=== PATIENT | male | born 1980 | race Caucasian/White ===

== ENCOUNTER 2022-04-12 18:08 | Inpatient (IN) | payer OTHER ==
[~2022-04-12] VITALS: Ht 193 cm; Wt 98.4 kg
[2022-04-12 19:07] LABS: BASO # 0.1 10^3/uL (0.0-0.2); BASO % 0.4 % (0.0-1.0); EOS % 0.1 % (0.0-3.0); HEMATOCRIT 42.1 % (42.0-52.0); HEMOGLOBIN 14.4 g/dl (13.5-17.5); LYMPH # 1.4 10^3/uL (1.5-5.0); LYMPH % 10.8 % (24.0-44.0); MEAN CORPUSCULAR HEMOGLOBIN 28.5 pg (27.0-33.0); MEAN CORPUSCULAR HGB CONC 34.2 g/dl (32.0-36.5); MEAN CORPUSCULAR VOLUME 83.4 fl (80.0-96.0); MONO # 1.2 10^3/uL (0.0-0.8); MONO % 9.5 % (2.0-8.0); NEUTROPHILS # 10.3 10^3/uL (1.5-8.5); NEUTROPHILS % 78.8 % (36.0-66.0); PLATELET COUNT, AUTOMATED 204 10^3/uL (150-450); RED BLOOD COUNT 5.05 10^6/uL (4.30-6.10); WHITE BLOOD COUNT 13.1 10^3/uL (4.0-10.0)
[2022-04-12] MEDS ORDERED: MORPHINE 4 MG/ML 1ML VIAL/SYRINGE IV ONE ×2 (19:30→21:15)
[2022-04-12] MEDS ORDERED: ONDANSETRON 4MG 2ML VIAL IV ONE (19:30)
[2022-04-12] MEDS ORDERED: NS 1,000 ML IV ONE (19:30)
[2022-04-12 19:32] LABS: ALBUMIN 4.3 GM/DL (3.2-5.2); ALT/SGPT 18 U/L (12-78); BILIRUBIN,DIRECT 0.3 MG/DL (0.0-0.2); BILIRUBIN,TOTAL 1.2 MG/DL (0.2-1.0); BLOOD UREA NITROGEN 12 MG/DL (7-18); CALCIUM LEVEL 9.2 MG/DL (8.5-10.1); CARBON DIOXIDE LEVEL 25 MEQ/L (21-32); CHLORIDE LEVEL 103 MEQ/L (98-107); CREATININE FOR GFR 1.31 MG/DL (0.70-1.30); GLOMERULAR FILTRATION RATE > 60.0 (>60); GLUCOSE, FASTING 110 MG/DL (70-100); LIPASE 79 U/L (73-393); POTASSIUM SERUM 3.3 MEQ/L (3.5-5.1); SODIUM LEVEL 136 MEQ/L (136-145); TOTAL PROTEIN 7.6 GM/DL (6.4-8.2)
[2022-04-12] MEDS ORDERED: ISOVUE-370 76% 100ML VIAL As Ordered ONE ×2 (19:32→19:54)
[2022-04-12 20:54] LABS: RSV AMPLIFICATION NEGATIVE (NEGATIVE)
[2022-04-12] MEDS ORDERED: PIPERACILLIN/TAZOBACTAM SOD 4.5 GM in D5W MINI-BAG PLUS 50 ML IV ONE (21:05)
[2022-04-12] MEDS ORDERED: BUPIVACAINE/EPIN 0.25% 30 ML VIAL As Ordered ONE (22:00)
[2022-04-12] MEDS ORDERED: MIDAZOLAM INJ 2MG/2ML VIAL (J2250 PER 1MG) As Ordered ONE (22:12)
[2022-04-12] MEDS ORDERED: LIDOCAINE 2% 100MG/5ML SDV (FOR ANES.) As Ordered ONE (22:12)
[2022-04-12] MEDS ORDERED: propofoL 200 MG/20 ML VIAL As Ordered ONE (22:12)
[2022-04-12] MEDS ORDERED: ROCURONIUM BROMIDE 50 MG/5 ML VIAL As Ordered ONE (22:12)
[2022-04-12] MEDS ORDERED: fentaNYL 250 MCG/5 ML INJECTION As Ordered ONE (22:12)
[2022-04-12] MEDS ORDERED: ONDANSETRON 4MG 2ML VIAL IV PRN ×2 (22:20→23:35)
[2022-04-12] MEDS ORDERED: NORCO, ANEXSIA 5/325MG TABLET (HYDROcodone/ACETAMINOPHEN) PO PRN ×2 (22:20)
[2022-04-12] MEDS ORDERED: ONDANSETRON 4MG 2ML VIAL As Ordered ONE (22:43)
[2022-04-12] MEDS ORDERED: dexameTHASONE 4 MG/ML 1ML VIAL (J1100 PER 1MG) As Ordered ONE (22:43)
[2022-04-12] MEDS ORDERED: ACETAMINOPHEN 1000MG 100ML IV BTL (OFIRMEV) (J0131 PER 10MG) As Ordered ONE (22:43)
[2022-04-12] MEDS ORDERED: KETOROLAC 60MG 2ML VIAL As Ordered ONE (22:43)
[2022-04-12] MEDS ORDERED: SUGAMMADEX SODIUM 500 MG/5 ML VIAL (BRIDION) As Ordered ONE (22:47)
[2022-04-12] MEDS ORDERED: oxyCODONE 5MG TAB PO PRN (23:35)
[2022-04-12] MEDS ORDERED: fentaNYL 100 MCG/2 ML INJECTION IV PRN (23:35)
[2022-04-12] MEDS ORDERED: LR 1,000 ML IV SCH (23:35)
[2022-04-13 00:38] VITALS: BP 102/57
[2022-04-13] MEDS: NS 1,000 ML IV SCH ×2 (01:02→05:55)
[2022-04-13 01:34] VITALS: BP 114/63
[2022-04-13 02:37] VITALS: BP 112/56
[2022-04-13] MEDS: PIPERACILLIN/TAZOBACTAM SOD 3.375 GM in D5W MINI-BAG PLUS 50 ML IV SCH ×2 (03:14→10:07)
[2022-04-13] MEDS ORDERED: HOME MED LIST COMPLETE! XX SCH (03:40)
[2022-04-13 04:54] VITALS: BP 107/56
[2022-04-13 06:14] LABS: HEMATOCRIT 39.6 % (42.0-52.0); HEMOGLOBIN 13.2 g/dl (13.5-17.5); MEAN CORPUSCULAR HEMOGLOBIN 28.6 pg (27.0-33.0); MEAN CORPUSCULAR HGB CONC 33.3 g/dl (32.0-36.5); MEAN CORPUSCULAR VOLUME 85.9 fl (80.0-96.0); PLATELET COUNT, AUTOMATED 179 10^3/uL (150-450); RED BLOOD COUNT 4.61 10^6/uL (4.30-6.10); WHITE BLOOD COUNT 13.1 10^3/uL (4.0-10.0)
[2022-04-13 06:23] VITALS: BP 104/56
[2022-04-13 06:45] LABS: BLOOD UREA NITROGEN 12 MG/DL (7-18); CALCIUM LEVEL 8.3 MG/DL (8.5-10.1); CARBON DIOXIDE LEVEL 25 MEQ/L (21-32); CHLORIDE LEVEL 106 MEQ/L (98-107); CREATININE FOR GFR 1.27 MG/DL (0.70-1.30); GLOMERULAR FILTRATION RATE > 60.0 (>60); GLUCOSE, FASTING 142 MG/DL (70-100); POTASSIUM SERUM 4.2 MEQ/L (3.5-5.1); SODIUM LEVEL 137 MEQ/L (136-145)
[2022-04-13] MEDS ORDERED: PANTOPRAZOLE 40MG TAB (PROTONIX) PO SCH (09:00)
[2022-04-13] MEDS ORDERED: SENOKOT S TAB PO SCH (09:00)
[2022-04-13] MEDS ORDERED: HYDR-3715 PO (09:43)
[2022-04-13] MEDS ORDERED: HYDR-3713 PO (09:53)
[2022-04-13 10:00] VITALS: BP 114/59
== END 2022-04-13 10:45 | disposition home or self-care (01) | DRG 343 ==
LOC: M ED 18:08 → M SDC 21:54 → M MS5PR 04-13 00:20 → M SDC 04-13 10:44 → M MS5PR 04-13 10:45
PROVIDERS: ADMIT Surgery; ATTEND Surgery
PROC: 0DTJ4ZZ Resection of Appendix, Percutaneous Endoscopic Approach (ICD-10-PCS; principal; 2022-04-12 21:23)
DX: K35.80 Unspecified acute appendicitis (principal)